=== PATIENT | male | born 1990 | race Caucasian/White ===

== ENCOUNTER 2017-11-08 15:31 | Emergency (ER) | payer MEDICARE, MEDICAID | END 2017-11-08 16:56 | disposition home or self-care (01) | LOC: D.ER 15:31 | DX: J02.9 Acute pharyngitis, unspecified (principal) ==

== ENCOUNTER → 2018-02-06 08:40 | Outpatient (CLI) | payer MEDICARE, MEDICAID | END | disposition home or self-care (01) | LOC: D.US 08:40 | DX: R10.30 Lower abdominal pain, unspecified (principal); R12 Heartburn ==

== ENCOUNTER 2019-08-14 09:51 | Emergency (ER) | payer MEDICAID ==
[~2019-08-14] VITALS: Ht 175.3 cm; Wt 117.4 kg
[2019-08-14 09:55] VITALS: Ht 175.3 cm; Wt 117.4 kg
[2019-08-14] MEDS ORDERED: PEPCID AC20 MG PO (09:58)
[2019-08-14] MEDS ORDERED: LISINOPRIL20 MG PO (09:58)
[2019-08-14 10:43] VITALS: BP 132/86
== END 2019-08-14 10:43 | disposition home or self-care (01) ==
LOC: D.ER 09:51
DX: T16.2XXA Foreign body in left ear, initial encounter (principal); I10 Essential (primary) hypertension

== ENCOUNTER 2019-11-08 18:37 | Emergency (ER) | payer OTHER ==
[~2019-11-08] VITALS: Ht 175.3 cm; Wt 117.7 kg
[~2019-11-08 18:37] MED LIST: LISINOPRIL20 MG PO; PEPCID AC20 MG PO
[2019-11-08 19:17] VITALS: Ht 175.3 cm; Wt 117.7 kg
[2019-11-08] MEDS ORDERED: ATARAX 25 MG TA25 MG PO (19:19)
[2019-11-08] MEDS ORDERED: ZOLOFT50 MG PO (19:19)
[2019-11-08] MEDS ORDERED: XOFLUZA40 MG PO (20:14)
[2019-11-08 20:41] VITALS: BP 123/67
== END 2019-11-08 20:41 | disposition home or self-care (01) ==
LOC: D.ER 18:37
DX: J11.1 Influenza due to unidentified influenza virus with other respiratory manifestations (principal); I10 Essential (primary) hypertension; F41.9 Anxiety disorder, unspecified; J45.909 Unspecified asthma, uncomplicated; R51 Headache; K21.9 Gastro-esophageal reflux disease without esophagitis

== ENCOUNTER 2020-04-06 17:09 | Emergency (ER) | payer OTHER ==
[~2020-04-06] VITALS: Ht 175.3 cm; Wt 118.2 kg
[~2020-04-06 17:09] MED LIST changes: +ATARAX 25 MG TA25 MG PO; +XOFLUZA40 MG PO; +ZOLOFT50 MG PO
[2020-04-06 17:10] VITALS: Ht 175.3 cm; Wt 118.2 kg
[2020-04-06] MEDS ORDERED: ZOLOFT100 MG PO (17:13)
[2020-04-06 17:36] LABS: BASOPHILS 0.3 % (0-2); EOSINOPHILS 0.5 % (0-7); HEMATOCRIT 47.7 % (42.0-54.0); HEMOGLOBIN 16.7 g/dL (13.5-17.5); IMMATURE GRANULOCYTES 0.3 % (0-5); LYMPHOCYTES 21.7 % (15-50); MCH 30.9 pg (26.0-34.0); MCV 88.3 fL (80.0-100.0); NEUTROPHILS 73.2 % (40-80); PLATELET COUNT 263 10x3/uL (130-400); RDW 12.1 % (11.5-14.5); WBC 7.8 10x3/uL (4.8-10.8)
[2020-04-06 17:46] LABS: CALC OSMOLALITY 278 mosm/kg (275-300); CARBON DIOXIDE 28.7 mmol/L (21.0-32.0); CHLORIDE - SERUM 103 mmol/L (98-107); CREATININE - SERUM 1.2 mg/dL (0.6-1.3); GLUCOSE 112 mg/dL (74-106); POTASSIUM - SERUM 3.9 mmol/L (3.5-5.1); SODIUM 140 mmol/L (136-145); UREA NITROGEN 9 mg/dL (7-18); eGFR NON AFRICAN AMERICAN 75 mL/min (90-120)
[2020-04-06 17:52] LABS: ALBUMIN 4.8 g/dL (3.4-5.0); ALKALINE PHOSPHATASE 109 U/L (30-120); ALT (SGPT) 38 U/L (10-68); BILIRUBIN - TOTAL 0.36 mg/dL (0.2-1.3); PROTEIN - SERUM 8.4 g/dL (6.4-8.2)
[2020-04-06 18:51] LABS: BILIRUBIN NEGATIVE (NEGATIVE); GLUCOSE NEGATIVE (NEGATIVE); KETONE NEGATIVE (NEGATIVE); NITRITE NEGATIVE (NEGATIVE); UROBILINOGEN NORMAL (NORMAL)
[2020-04-06 18:53] LABS: UDS - AMPHET NEGATIVE QUAL (NEGATIVE); UDS - BARB NEGATIVE QUAL (NEGATIVE); UDS - BENZO NEGATIVE QUAL (NEGATIVE); UDS - COCAINE NEGATIVE QUAL (NEGATIVE); UDS - OPIATE NEGATIVE QUAL (NEGATIVE); UDS - PCP NEGATIVE QUAL (NEGATIVE); UDS - THC NEGATIVE QUAL (NEGATIVE)
[2020-04-06 23:00] VITALS: BP 136/84
== END 2020-04-06 23:00 ==
LOC: D.ER 17:09
PROVIDERS: Family Medicine
DX: R45.851 Suicidal ideations (principal); I10 Essential (primary) hypertension; Z72.0 Tobacco use